=== PATIENT | male | born 2005 | race Caucasian/White ===

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

== ENCOUNTER → 2024-03-20 14:24 | Outpatient (REF) | payer BC, SELFPAY | LOC: RAD 14:24 | PROVIDERS: ATTENDING PHYSICIAN Orthopaedic Surgery | DX: M25.512 Pain in left shoulder (principal); T84.84XA Pain due to internal orthopedic prosthetic devices, implants and grafts, initial encounter | CPT/HCPCS: 23350; 73040; 73201 ==

== ENCOUNTER 2025-01-30 12:57 | Emergency (ER) | payer BC, SELFPAY ==
[2025-01-30 12:59] VITALS: BP 132/70
--- NOTE | 2025-01-30 13:51 | ED.GENMED ---
History of Present Illness
General
Chief Complaint: Cold/Flu/URI Symptoms
Source: patient
Exam Limitations: none
Time Seen by Provider: 01/30/25 13:21
History of Present Illness
History of Present Illness:
19yoM with a history of asthma presenting with his mother for evaluation of URI symptoms. Symptoms began about 2 to 3 days ago. He reports cough, congestion, sore throat, headache, and fatigue. He reports feeling warm but denies any documented
fevers. He feels like he is having trouble swallowing due to his symptoms. He has used his albuterol inhaler a few times. No vomiting or diarrhea. No known sick contacts. He has never been hospitalized for asthma before.
Past History
Past History
ED Past Medical History: Asthma
ED Past Surgical History: Orthopedic and Other (Adenoidectomy, sinus surgery)
Social History
Tobacco: Non-smoker
Alcohol: None
Drug: None
Personal: Single
Living: with family
Employment: Student
Family History
Family History: Other (Noncontributory)
Phy Exam
General Physical Exam
General Presentation: well appearing and no apparent distress
General Skin: warm and dry
General Habitus: normal
General Mental: alert
ENT Exam
ENT Exam: TM's normal, neck supple, normocephalic and other (Erythema in posterior oropharynx. No tonsillar enlargement or exudates. Uvula midline. No trismus. Normal phonation. Tolerating oral secretions without difficulty. )
Cardiovascular Exam
Cardiovascular Exam: tachycardia
Pulmonary Exam
Pulmonary Exam: no respiratory distress, no rales, no rhonchi and other (Scant wheezes)
Neurological Exam
Neurological Exam: alert
Will Coma Scale
Eye Opening: Spontaneous
Verbal Response: Oriented
Motor Response: Obeys Commands
GCS Total Score: 15
Skin Exam
Skin Exam: normal color and warm/dry
Psychiatric Exam
Psychiatric Exam: normal mood/affect
Sepsis
Sepsis Screening
Sepsis Assessment: Sepsis Ruled Out
Sepsis Screen
Sepsis Screen: Sepsis Ruled Out
Date: 01/30/25
Time: 17:04
Course
Orders/Labs/Results
Orders:
Orders
01/30/25 13:44
Ipratropium/Albuterol Sulfate [Duoneb] 3 ml INH R NOW STA
CR Chest - 2 Views Urgent
Comment:
Reason For Exam: cough
01/30/25 13:59
COVID-19 Antigen Urgent
Source: Nasal Swab
Influenza A+B Rapid Molecular Urgent
NIDA Source: Nasal Swab
Specimen Description:
Abnormal Lab Results
01/30/25
13:59
SARS-CoV-2 Antigen Positive A
(Negative)
Vital Signs
Initial and Last Documented VS:
Initial Vital Signs
Temp Pulse Resp BP Pulse Ox
99.8 F 114 22 132/70 96
01/30/25 12:59 01/30/25 12:59 01/30/25 12:59 01/30/25 12:59 01/30/25 12:59
Last Documented Vital Signs
Temp Pulse Resp BP Pulse Ox
99.8 F 117 22 132/70 98
01/30/25 12:59 01/30/25 14:13 01/30/25 12:59 01/30/25 12:59 01/30/25 15:00
MDM/Problems Addressed
Differential Diagnosis Includes:
19yoM here with URI symptoms x 2-3 days. C/o cough, congestion, sore throat. States he is having difficulty swallowing but there is no tonsillar enlargement noted on exam and phonation is normal. He is tachycardic on arrival. Hx of asthma and scant
wheezes on lung exam without signs of respiratory distress. Differential diagnosis includes but is not limited to: URI, bronchitis, asthma exacerbation, pneumonia
Initial ED plan: Check COVID/flu swab and CXR. DuoNeb and reassess.
*Pulse Oximetry
SaO2: 96
Oxygen Mode of Delivery: Room air
Patient hypoxic: no
*Critical Care Note
Total Time (30-74mins, 75-104mins- exclusive of procedures): Not Applicable
Update Note
Update Note:
Patient is positive for COVID-19. CXR is clear without infiltrates. Oxygen saturation 97% on reassessment and lungs are clear. Patient stable for discharge. Supportive care discussed and he was started on a course of prednisone. Advised f/u with PCP
and ED return precautions reviewed.
ED Attending Note
-
Portions of this chart may have been created with voice recognition software.� Occasional wrong word or��sound alike� substitutions may have occurred due to the inherent limitations of voice recognition software.
Discharge Plan
Departure
Patient Disposition: Home (Routine Discharge)
Date of Disposition: 01/30/25
Time of Disposition: 15:45
Patient with high blood pressure during this ER visit?: No
Discharge Problem:
COVID-19
Instructions: COVID-19 in adults - ED (DC)
Prescriptions:
New
prednisone 50 mg tablet
50 mg PO DAILY Qty: 5 0RF
albuterol sulfate 2.5 mg /3 mL (0.083 %) solution for nebulization
2.5 mg inhalation Q6H PRN (Reason: shortness of breath or wheezing) Qty: 75 0RF
Referrals:
Iván Evans MD [Family Provider]
Activity Restrictions/Additional Instructions:
Take prednisone as prescribed. Drink plenty of fluids and rest. Use inhaler and nebulizer treatments as needed for wheezing/chest tightness.
Please follow-up with your family doctor. Return to the ER with any new or worsening symptoms.
Interventions
Interventions:
*Risk Screen - Suicide Last Done: 01/30/25 12:59
*General Assessment Last Done: 01/30/25 12:59
*Neglect/Abuse Screening Last Done: 01/30/25 12:59
*ED- Fall Risk Assessment Last Done: 01/30/25 16:05
*ED COVID-19 Vaccine History Last Done: 01/30/25 16:05
*ED Influenza Vaccine History Last Done: 01/30/25 16:05
*Nursing Disposition Last Done: 01/30/25 16:11
ED- Pulmonary Assessment Last Done: 01/30/25 15:00
Discharge Date and Time
Discharge Date/Time: 01/30/25 16:15
Print Language: BELIZEAN
[2025-01-30 13:58] VITALS: BMI 25.0
[2025-01-30] MEDS: DUONEB 3 ML INH (14:01)
[2025-01-30 14:32] LABS: COVID-19 Antigen Positive (Negative)
== END 2025-01-30 16:15 | disposition home or self-care (01) ==
LOC: EMR 12:57
PROVIDERS: Physician Assistant; EMERGENCY PHYSICIAN Student in an Organized Health Care Education/Training Program; FAMILY PHYSICIAN Family Medicine
DX: U07.1 COVID-19 (principal); J45.909 Unspecified asthma, uncomplicated
CPT/HCPCS: 99284; 94640; 71046; 87502; 87811